=== PATIENT | female | born 1995 | race Caucasian/White ===

== ENCOUNTER 2023-05-23 10:35 | Emergency (ER) | payer BC, SELFPAY ==
[2023-05-23 10:37] VITALS: BP 140/80; PULSE 77; RESP 18; TEMP 36.5; O2SAT 100
[2023-05-23 11:05] LABS: Bilirubin Negative (Negative); Blood Negative (Negative); Clarity Clear (Clear); Glucose Negative (Negative); Ketones Negative (Negative); Leukocyte Esterase Negative (Negative); Nitrite Negative (Negative); Urobilinogen 0.2 mg/dL (Up to 0.2); pH 7.5 (5-8)
[2023-05-23 11:13] LABS: Abs Immature Grans 0.05 10^3/uL (0.0-0.06); Absolute Basophil Count 0.07 10^3/uL (0.0-0.2); Absolute Eosinophil Count 0.19 10^3/uL (0.0-0.7); Absolute Lymphocyte Count 1.98 10^3/uL (1.2-3.4); Absolute Monocyte Count 0.69 10^3/uL (0.1-0.8); Absolute Neutrophil Count 7.68 10^3/uL (1.2-6.7); Basophils % 0.7; Eosinophils % 1.8; HCT 42.3 % (36.0-46.0); HGB 14.6 g/dL (11.2-15.7); Immature Grans % 0.5; Lymphocytes % 18.6; MCH 29.2 pg (27.0-33.0); MCHC 34.5 % (32.0-36.0); MCV 85 fL (80-95); MPV 9.7 fL (8.0-11.0); Monocytes % 6.5; Neutrophils % 71.9; Platelet Count 233 10^3/uL (130-400); RDW 12.4 % (11.7-14.6); RDW-SD 37.6 fL; WBC 10.66 10^3/uL (4.4-10.8)
--- NOTE | 2023-05-23 11:27 | ED.GENADUL_ITS ---
Discharge Plan Disposition Patient Disposition: Home Discharge Details Clinical Impression: Ovarian cyst Primary Care Provider: Tyson Wade III ED Provider: Rodriguez Martins Home Meds and New Rx's Prescriptions: New ibuprofen [IBU] 600 mg tablet 600 mg PO QID PRN (Reason: pain) Qty: 20 0RF ondansetron 4 mg tablet,disintegrating 4 mg PO Q8H PRN (Reason: nausea and vomiting) Qty: 10 0RF Discharge Instructions Instructions: Ovarian Cyst (ED) Additional Instructions: Please continue to take medications as needed. Follow-up with your PRINCIPLE SOFTWARE ENGINEER as needed for reassessment if not improving. Return to the emergency department for any new or significant worsening of symptoms Stand Alone Forms: Work Release Referrals: Tyson Wade III [Primary Care Provider] - (As needed for reassessment or if not improving) Discharge Data Discharge Date/Time-TO BE ENTERED AT DEPARTURE: 05/23/23 14:03 HPI General Mode of arrival: ambulatory . Date/Time Provider Initiated Documentation: 05/23/23 10:40 . Limitations to Documentation: no limitations . Information obtained by: patient and RN notes reviewed . History of Present Illness 27 year old F presents to the emergency department with the chief complaint of abd pain- RLQ, described as moderate, Quality is described as aching, and is localized to the abdomen. Patient reports radiation to back. Patient started experiencing this day(s) (5) and it has been constant. No relieving factors improve symptom(s), No exacerbating factors reported . Patient did receive the following treatments prior to arrival, NSAID Related Data Home Medications Medication Instructions Recorded Confirmed ibuprofen 600 mg tablet (IBU) 600 mg PO QID PRN pain #20 tabs 05/23/23 ondansetron 4 mg disintegrating 4 mg PO Q8H PRN nausea and 05/23/23 tablet vomiting #10 tabs Previous Rx's Medication Instructions Recorded ibuprofen 600 mg tablet (IBU) 600 mg PO QID PRN pain #20 tabs 05/23/23 ondansetron 4 mg disintegrating 4 mg PO Q8H PRN nausea and 05/23/23 tablet vomiting #10 tabs General Stated Complaint: Abd Prob ELIZABET: 3 Review of Systems Constitutional Constitutional: Denies chills, Denies fever(s) and Reports poor appetite Cardiovascular Cardiovascular: Denies chest pain and Denies dyspnea Respiratory Respiratory: Denies cough and Denies dyspnea Gastrointestinal Gastrointestinal: Reports as per HPI, Reports abdominal pain, Denies melena, Denies change in bowel habits, Denies constipation, Denies diarrhea, Reports nausea and Denies vomiting Genitourinary Genitourinary: Denies hematuria, Denies dysuria and Reports flank pain Integumentary/Breasts Skin/Breast: Denies rash Exam Const General: cooperative Orientation: alert, awake and oriented x3 Resp Effort & Inspection: normal respiratory effort and able to speak in complete sentences Auscultation: clear to auscultation bilaterally Cardio Rate: regular rate Rhythm: regular rhythm Heart Sounds: S1 normal and S2 normal GI Inspection: obesity Palpation: soft, no hepatosplenomegaly, not firm, no guarding, no masses, no pulsatile masses, not rigid, no splenomegaly and tender in the RLQ Auscultation: normal bowel sounds Back/Spine/Pelvis Back: no CVA tenderness Neuro General: patient alert, patient awake, patient oriented x3, gait normal and moves all extremities Course Vital Signs Vital signs: Vital Signs Temperature 36.5 C 05/23/23 10:37 Pulse 77 05/23/23 10:37 Respiratory Rate 18 05/23/23 10:37 Blood Pressure 140/80 05/23/23 10:37 Pulse Oximetry 100 05/23/23 10:37 Temperature 36.5 C 05/23/23 10:37 Temperature Source Temporal Artery Scan 05/23/23 10:37 Pulse 77 05/23/23 10:37 Respiratory Rate 18 05/23/23 10:37 Blood Pressure 140/80 05/23/23 10:37 Blood Pressure Position Sitting 05/23/23 10:37 Pulse Oximetry 100 05/23/23 10:37 Oxygen Delivery Method Room Air 05/23/23 10:37 Oxygen Flow Rate 0 05/23/23 10:37 Lab/Test Results Lab/Test Results: Laboratory Tests Range/Units 05/23/23 05/23/23 10:42 11:05 WBC (4.4-10.8) 10^3/uL 10.66 RBC (3.93-5.22) 10^6/uL 5.00 Hgb (11.2-15.7) g/dL 14.6 Hct (36.0-46.0) % 42.3 MCV (80-95) fL 85 MCH (27.0-33.0) pg 29.2 MCHC (32.0-36.0) % 34.5 RDW (11.7-14.6) % 12.4 Plt Count (130-400) 10^3/uL 233 MPV (8.0-11.0) fL 9.7 Immature Gran % 0.5 Neutrophils % 71.9 Lymphocytes % 18.6 Monocytes % 6.5 Eosinophils % 1.8 Basophils % 0.7 Nucleated RBC % (0.0-0.3) % 0.0 Absolute Neutrophils (1.2-6.7) 10^3/uL 7.68 H Absolute Lymphocytes (1.2-3.4) 10^3/uL 1.98 Absolute Monocytes (0.1-0.8) 10^3/uL 0.69 Absolute Eosinophils (0.0-0.7) 10^3/uL 0.19 Absolute Basophils (0.0-0.2) 10^3/uL 0.07 Urine Color (Yellow) Yellow Urine Clarity (Clear) Clear Urine pH (5-8) 7.5 Ur Specific [place] (1.005-1.025) 1.020 Urine Protein (Neg-Trace) mg/dL Negative Urine Ketones (Negative) mg/dL Negative Urine Blood (Negative) Negative Urine Nitrite (Negative) Negative Urine Bilirubin (Negative) Negative Urine Urobilinogen (Up to 0.2) mg/dL 0.2 Ur Leukocyte Esterase (Negative) Negative Urine Glucose (Negative) mg/dL Negative POC- Test(urine) Negative Medical Decision Making Patient presenting to the emergency department for chief complaint of right lower quadrant pain with some radiation to her back for the past 5 days. Patient does state slight low appetite due to intermittent nausea, subjective fever on the first day and none since, denies diarrhea, urinary or vaginal symptoms. Patient does state history of ovarian cyst but states that this feels significantly different than previous ovarian cyst. No other significant contributing past medical history. Physical exam does show significant tenderness to right lower quadrant with palpation, no CVA tenderness, otherwise noncontributory exam. Will plan on performing labs and CT imaging. Reviewed patient's labs and CBC is overall nondiagnostic, CMP urinalysis are also negative and patient is not . CT imaging was performed and does show ovarian cyst that is small. Given that patient is complaining of significant difference from previous feeling and persistence for 5 days will perform ultrasound imaging for evaluation of torsion versus cyst. Ultrasound imaging reviewed and shows ovarian cyst with no evidence of torsion. Discussed management of symptoms with patient along with return and follow-up precautions. After discussion of diagnosis and plan of care patient has no further needs, questions, or concerns and states clear understanding to return to the emergency department for any worsening symptoms. This documentation was generated using [employer] dictation system, please disregard any oddities of phrase or misspellings. Imaging Data Radiologic Study: Imaging: CT Scan Radiologist's impression: Patient Name: Cuca King Unit #: [id number] Loc: ER Ordering Provider: Rodriguez Martins NP Status: PRE ER Primary Care Provider: Tyson Wade III Date of Exam: 05/23/23 Sex: F : 1995 Age: 27 Exam(s) a CT:CT abdomen & pelvis w Exam(s) CT ABDOMEN PELVIS W EXAM: CT ABDOMEN PELVIS W CLINICAL HISTORY: RLQ pain TECHNIQUE: Imaging Protocol: Axial computed tomography images with coronal and sagittal reformatted images were created and reviewed. CONTRAST MATERIAL: Intravenous: Omnipaque 350 Contrast volume:100 mL Oral: No COMPARISON: No exams were available for comparison FINDINGS: ABDOMEN: Lung Bases: Normal where visualized. Liver: Normal density. No measurable mass. Portal, Superior Mesenteric, and Splenic Veins: Unremarkable. Gallbladder and Biliary Tract: No radiodense calculus or dilation. Pancreas: Normal density, no abnormal calcifications or inflammatory process. Spleen: Normal. Adrenals: No masses seen. Kidneys: Normal size, contour and axis. No radiodense stones or obstructive uropathy. No masses seen. Abdominal Aorta: Abdominal portion non-dilated. Bowel: No obstruction or bowel wall thickening. Appendix is unremarkable. Peritoneal Cavity: No ascites, collection or mesenteric inflammatory response. No free air. Lymph Nodes: Within normal limits. Bones: Within normal limits for the patient's age. Soft Tissues: Unremarkable. PELVIS: Bladder: Urinary bladder is incompletely distended but grossly unremarkable. Reproductive Organs: The right ovary is enlarged with a 4.1 x 2.7 cm cyst. Lymph Nodes: Within normal limits. Bones: Within normal limits for the patient's age. IMPRESSION: 1. No evidence of nephrolithiasis or hydronephrosis. 2. No evidence of gallstones or biliary ductal dilatation. 3. Normal appendix. 4. Enlarged right ovary with a 4.1 x 2.7 cm cyst. If there is concern for torsion, pelvic ultrasound should be obtained. Radiologic Study #2: Imaging: Ultrasound Radiologist's impression: Exam(s) US PELVIS TRANSVAGINAL EXAM: US PELVIS TRANSVAGINAL CLINICAL HISTORY: RLQ pain, R Ovarian cyst. TECHNIQUE: Transabdominal and transvaginal pelvic ultrasound was performed using standard protocol. COMPARISON: CT CT ABDOMEN PELVIS W from 05/23/2023 FINDINGS: UTERUS: Position: Anteverted. Size: 7.7 x 4.0 x 4.5 cm Endometrium: 0.6 cm. Normal for patient's menstrual status. Myometrium: Unremarkable. Cervix: Unremarkable. OVARIES: Right: 5.0 x 3.1 x 4.3 cm Cyst or mass: No suspicious cystic or solid masses. There is a 4.1 x 3.3 x 2.5 cm simple cyst on the right ovary. This corresponds to the cysts seen on the CT scan from the same day. Left: 2.0 x 2.6 x 2.5 cm Cyst or mass: No suspicious cystic or solid masses. DOPPLER: Color: Symmetric and uniform flow to both ovaries. CUL-DE-SAC: Free fluid: None. Other: None. IMPRESSION: 1. Normal-appearing uterus with endometrial stripe within normal limits. 2. There is a 4.1 x 3.3 x 2.5 cm simple cyst on the right ovary. This is likely physiologic cyst. No evidence of torsion. Lab Data Lab results reviewed: Yes I reviewed the patient's lab results. Quality:[facility] Related Social Needs: No Data to Display [facility] All Active Problems (Updated 05/23/23 @ 13:52 by Rodriguez Martins NP) Ovarian cyst (Acute) Social History Smoking risk assessment performed?: No
[2023-05-23 11:37] LABS: ALT 23 U/L (14-59); AST 16 U/L (15-37); Albumin 3.6 g/dL (3.4-5.0); Alkaline Phosphatase 94 U/L (46-116); Anion Gap 10.6 mmol/L (3-11); BUN 13 mg/dL (7-18); Bilirubin, Total 0.4 mg/dL (0.2-1.0); CO2 24.4 mmol/L (21.0-32.0); CREATININE 0.7 mg/dL (0.55-1.02); Calcium 8.7 mg/dL (8.5-10.1); Chloride 105 mmol/L (98-107); Estimated GFR 123.01 (mL/min/1.73m2); Glucose 87 mg/dL (74-106); Lipase 22 U/L (16-77); Magnesium 2.2 mg/dL (1.8-2.4); Potassium 4.1 mmol/L (3.5-5.1); Sodium 140 mmol/L (136-145); Total Protein 7.8 g/dL (6.4-8.2)
[2023-05-23] MEDS: Normal Saline - Diluent 50 ML VIAL IJ (11:48)
[2023-05-23] MEDS: Omnipaque 350 MG/ML 100 ML BTL IJ (11:48)
--- NOTE | 2023-05-23 12:00 | DI.US_ITS ---
Exam(s) US PELVIS TRANSVAGINAL EXAM: US PELVIS TRANSVAGINAL CLINICAL HISTORY: RLQ pain, R Ovarian cyst. TECHNIQUE: Transabdominal and transvaginal pelvic ultrasound was performed using standard protocol. COMPARISON: CT CT ABDOMEN PELVIS W from 05/23/2023 FINDINGS: UTERUS: Position: Anteverted. Size: 7.7 x 4.0 x 4.5 cm Endometrium: 0.6 cm. Normal for patient's menstrual status. Myometrium: Unremarkable. Cervix: Unremarkable. OVARIES: Right: 5.0 x 3.1 x 4.3 cm Cyst or mass: No suspicious cystic or solid masses. There is a 4.1 x 3.3 x 2.5 cm simple cyst on the right ovary. This corresponds to the cysts seen on the CT scan from the same day. Left: 2.0 x 2.6 x 2.5 cm Cyst or mass: No suspicious cystic or solid masses. DOPPLER: Color: Symmetric and uniform flow to both ovaries. CUL-DE-SAC: Free fluid: None. Other: None. IMPRESSION: 1. Normal-appearing uterus with endometrial stripe within normal limits. 2. There is a 4.1 x 3.3 x 2.5 cm simple cyst on the right ovary. This is likely physiologic cyst. N o evidence of torsion. DATA REPOSITORY:
--- NOTE | 2023-05-23 12:00 | DI.CT_ITS ---
Exam(s) CT ABDOMEN PELVIS W EXAM: CT ABDOMEN PELVIS W CLINICAL HISTORY: RLQ pain TECHNIQUE: Imaging Protocol: Axial computed tomography images with coronal and sagittal reformatted images were created and reviewed. CONTRAST MATERIAL: Intravenous: Omnipaque 350 Contrast volume:100 mL Oral: No COMPARISON: No exams were available for comparison FINDINGS: ABDOMEN: Lung Bases: Normal where visualized. Liver: Normal density. No measurable mass. Portal, Superior Mesenteric, and Splenic Veins: Unremarkable. Gallbladder and Biliary Tract: No radiodense calculus or dilation. Pancreas: Normal density, no abnormal calcifications or inflammatory process. Spleen: Normal. Adrenals: No masses seen. Kidneys: Normal size, contour and axis. No radiodense stones or obstructive uropathy. No masses seen. Abdominal Aorta: Abdominal portion non-dilated. Bowel: No obstruction or bowel wall thickening. Appendix is unremarkable. Peritoneal Cavity: No ascites, collection or mesenteric inflammatory response. No free air. Lymph Nodes: Within normal limits. Bones: Within normal limits for the patient's age. Soft Tissues: Unremarkable. PELVIS: Bladder: Urinary bladder is incompletely distended but grossly unremarkable. Reproductive Organs: The right ovary is enlarged with a 4.1 x 2.7 cm cyst. Lymph Nodes: Within normal limits. Bones: Within normal limits for the patient's age. IMPRESSION: 1. No evidence of nephrolithiasis or hydronephrosis. 2. No evidence of gallstones or biliary ductal dilatation. 3. Normal appendix. 4. Enlarged right ovary with a 4.1 x 2.7 cm cyst. If there is concern for torsion, pelvic ultrasound should be obtained. RADIATION DOSE DELIVERED: Total DLP DATA REPOSITORY: All CT scans at this facility are submitted to the National Radiology Data Registry (NRDR) Dose Index Registry (DIR) with the [employer] (ACR). RADIATION OPTIMIZATION: All CT scans at this facility use at least one of these dose optimization te chniques: automated exposure control; mA and/or kV adjustment per patient size (includes targeted exa ms where dose is matched to clinical indication); or iterative reconstruction.
[2023-05-23] MEDS: Ondansetron O.D.T. 4 MG TABEF PO (12:28)
== END 2023-05-23 14:03 | disposition home or self-care (01) ==
PROVIDERS: Emergency Provider Nurse Practitioner Family; PCP Pediatrics
DX: N83.291 Other ovarian cyst, right side
CPT/HCPCS: 80053; 81025; 83690; 99285; 74177; 76830; 76856; 81003; 83735; 85025; J3490

== ENCOUNTER 2023-10-19 11:35 | Outpatient (CLI) | payer BC, SELFPAY ==
--- NOTE | 2023-10-19 08:30 | DI.RAD_ITS ---
Exam(s) XR HIP LT COMPLETE AP PELVIS EXAM: XR HIP LT COMPLETE AP PELVIS CLINICAL HISTORY: LEFT HIP PAIN. TECHNIQUE: 2D digital imaging was performed. COMPARISON: No exams were available for comparison FINDINGS: Two views. No evidence of pelvic nor hip fracture. Additional lateral view of the left hip does not reveal join t space narrowing nor osteophytes. Bone density normal. Sacroiliac joints appear unremarkable. Bone density normal. No osseous lesions. No evidence of kristie scular necrosis. IMPRESSION: No acute osseous findings in the pelvis and hips. DATA REPOSITORY: RADIATION DOSE DELIVERED:
== END 2023-10-19 11:36 | disposition home or self-care (01) ==
LOC: DIORS 11:36
PROVIDERS: PCP Internal Medicine; Referring Provider Internal Medicine; Visit Provider Student in an Organized Health Care Education/Training Program
DX: M25.552 Pain in left hip (principal)
CPT/HCPCS: 73502

== ENCOUNTER 2023-11-16 21:13 | Outpatient (CLI) | payer BC, SELFPAY ==
[2023-11-16] MEDS: Normal Saline - Diluent 50 ML VIAL IJ (10:08)
[2023-11-16] MEDS: Bupivacaine 0.5% Pres-Free 10 ML VIAL IJ (10:12)
[2023-11-16] MEDS: Omnipaque 300 MG/ML 10 ML BTL IJ (10:13)
[2023-11-16] MEDS: Gadoterate meglumine 20 ML VIAL IVP (10:14)
== END 2023-11-16 21:33 ==
LOC: DI 11-23 21:13
PROVIDERS: PCP Internal Medicine; Visit Provider Student in an Organized Health Care Education/Training Program
DX: M25.852 Other specified joint disorders, left hip (principal); S73.192A Other sprain of left hip, initial encounter; Z53.09 Procedure and treatment not carried out because of other contraindication
CPT/HCPCS: J0665

== ENCOUNTER 2023-12-23 00:37 | Outpatient (CLI) | payer BC, SELFPAY ==
--- OUTSIDE RECORDS SUMMARY | 2023-12-23 00:41 | XMS_ITS | Clinical Summary ---
Author Organization [facility] Address [address] [place] [address] Care Team Providers Care Router Machine Operator Name Role Phone Unknown, Provider Primary Care Provider Encounters Date Type Department Care Team Description 10/27/2023 Lab Requisition [facility] Pathology & Laboratory Medicine - [facility] [address] [place] [address] Virgilio Kumar DO Encounter for other general examination from Last 3 Months Social History Tobacco Use Types Packs/Day Years Used Date Smoking Tobacco: Never Assessed Interpersonal Safety Answer Date Record ed Physically Hurt Never 2019 Verbally Threaten Not on file 2019 Sex and Gender Information Value Date Recorded Sex Assigned at Not on file Gender Identity Not on file Sexual Orientation Not on file Plan of Treatment Health Maintenance Due Date Last Done Comments Hepatitis C Screen 1995 Hepatitis B Vaccine (1 of 3 - 19+ 3-dose series) 10/15 COVID-19 Vaccine ( season) 2023 Procedures Procedure Name Priority Date/Time Associated Diagnosis Comments SURGICAL PATHOLOGY Today 10/27/2023 8: 11 EDT Encounter for other general examination from Last 3 Months Results * SURGICAL PATHOLOGY (10/27/2023 8:11 EDT) Note to Patient The following pathology results have been interpreted by your pathologist and may be available to you before your health provider has had the opportunity to review them. Please allow time for your provider to receive these results and explore management options, if applicable. 11/01/2023 10:05 EDT [facility] Final Diagnosis A. ESOPHAGUS, MID, BIOPSY: - Superficial strip of squamous mucosa with reactive changes. 11/01/2023 10:05 EDT [facility] Attestation There was significant resident/fellow involvement in the diagnostic evaluation of this case. By the signature below, the attending physician certifies that they have personally conducted a gross and/or microscopic examination of the described specimens and rendered or confirmed the above diagnosis. 11/01/2023 10:05 [facility] at 1005 Clinical History Dysphagia; normal 11/01/2023 10:05 [facility] Gross Description A. Received in formalin labelled with proper patient identification (initials D, M) and mid esophagus bx are 2 white tissues (0.2 x 0.2 x 0.1 cm and 0.5 x 0.2 x 0.1 cm). Entirely submitted in A1. INGA DURBIN([facility]) 10/28/2023 9:21 11/01/2023 10:05 [facility] Resident/Adrian w: Rodriguez [place] DO 11/01/2023 10:05 [facility] Performing Lab [facility] 11/01/2023 10:05 [facility] Scanned Images 11/01/2023 10:05 [facility] Tissue ESOPHAGEAL STRUCTURE / Unknown 10/27/2023 8:11 EDT 10/28/2023 9:07 EDT Virgilio Kumar DO PATHOLOGY ORDERABL ES [facility] [address] [place] [address] from Last 3 Months Care Teams Router Machine Operator Relationship Specialty Start Date End Date Unknown, Provider, PCP - General 04/06/18
--- OUTSIDE RECORDS SUMMARY | 2023-12-23 00:42 | XMS_ITS | Encounter Summary ---
Author Organization [facility] Address [address] [place] [address] Care Team Providers Care Supervisor Assembly Room Name Role Phone Unknown, Provider Primary Care Provider [phone] Encounter Details Date Type Department Care Team (Late st Contact Info) Description 07/13/2022 Lab Requisition [facility] Pathology & Laboratory Medicine - [facility] [address], [place] [address] Madina Kulkarni [address] [place] [address] Encounter for screening for malignant neoplasm of cervix; Encounter for screening for human papillomavirus (HPV) Social History Tobacco Use Types Packs/Day Years Used Date Smoking Tobacco: Never Assessed Interpersonal Safety Answer Date Record ed Physically Hurt Never 2019 Verbally Threaten Not on file 2019 Sex and Gender Information Value Date Recorded Sex Assigned at Not on file Gender Identity Not on file Sexual Orientation Not on file documented as of this encounter Plan of Treatment Not on file documented as of this encounter Procedures Procedure Name Priority Date/Time Associated Diagnosis Comments PAP TEST Today 07/13/2022 9:13 EDT documented in this encounter Results * PAP TEST (07/13/2022 9:13 EDT) Specimens A. Cervix and/or Endocervix , ThinPrep Imaging System with Manual Evaluation 07/20/2022 12:50 EDT [facility] Specimen Adequacy Satisfactory for Evaluation - transformation zone component present 07/20/2022 12:50 EDT [facility] General Categorization Negative for intraepithelial lesion or malignancy 07/20/2022 12:50 EDT [facility] Attestation . 07/20/2022 12:50 EDT [facility] at 1250 Clinical History SEE BELOW 07/21/19 12:50 EDT [facility] Performing Lab [facility] 07/20/2022 12:50 EDT [facility] Scanned Images 07/20/2022 12:50 EDT [facility] Papanicolaou smear specimen (specimen) CERVIX UTERI STRUCTURE / Unknown 07/13/2022 9:13 EDT 07/14/2022 15:51 EDT Madina Kulkarni PATHOLOGY ORDERABLES [facility] [address] [place] [address] documented in this encounter Visit Diagnoses Diagnosis Encounter for screening for malignant neoplasm of cervix Screening for malignant neoplasm of the cervix Encounter for screening for human papillomavirus (HPV) Special screening examination for human papillomavirus (HPV) documented in this encounter Care Teams Supervisor Assembly Room Relationship Specialty Start Date End Date Unknown, Provider, PCP - General 04/06/18 documented as of this encounter
--- OUTSIDE RECORDS SUMMARY | 2023-12-23 00:42 | XMS_ITS | Encounter Summary ---
Author Organization [facility] Address [address] [place] [address] Care Team Providers Care Residential Child Care Counselor Name Role Phone Unknown, Provider Primary Care Provider Encounter Details Date Type Department Care Team (Latest Contact Info) Description 04/06/2018 19:49 EST - 04/06/2018 23:59 EST Hospital Encounter [address] [address] Unknown, Provider, Discharge Disposition: Auto Discharge Social History Tobacco Use Types Packs/Day Years Used Date Smoking Tobacco: Never Assessed Sex and Gender Information Value Date Recorded Sex Assigned at Not on file Gender Identity Not on file Sexual Orientation Not on file documented as of this encounter Discharge Disposition Disposition Code Departure Means Destination Auto Discharge Home documented in this encounter Plan of Treatment Not on file documented as of this encounter Visit Diagnoses Not on filedocumented in this encounter Care Teams Residential Child Care Counselor Relationship Specialty Start Date End Date Unknown, Provider, PCP - General 04/06/18 documented as of this encounter
--- OUTSIDE RECORDS SUMMARY | 2023-12-23 00:42 | XMS_ITS | Encounter Summary ---
Author Organization [facility] Address [address] [place] [address] Care Team Providers Care Adult Probation Officer Name Role Phone Unknown, Provider Primary Care Provider Encounter Details Date Type Department Care Team (Late st Contact Info) Description 07/13/2022 Lab Requisition [facility] Pathology & Laboratory Medicine - [facility] [address] [place] [address] Outr Resulting Lab, Provider Social History Tobacco Use Types Packs/Day Years [...] Procedure Name Priority Date/Time Associated Diagnosis Comments CHLAMYDIA/N. GONORRHOEAE AMPLIFIED NUCLEIC ACID, THINPREP Routine 07/13/2022 9:13 EDT documented in this encounter Results * CHLAMYDIA/N. GONORRHOEAE AMPLIFIED RNA, THINPREP (07/13/2022 9:13 EDT) Neisseria gonorrhoeae Result Negative Negative 07/14/2022 15:35 EDT [facility] Chlamydia trachomatis Result Negative Negative 07/14/2022 15:35 EDT [facility] Papanicolaou smear specimen (specimen) CERVIX UTERI STRUCTURE / Unknown 07/13/2022 9:13 EDT 07/14/2022 10:44 EDT Provider Outr Resulting Lab MICROBIOLOGY - GENERAL ORDERABLES [facility] [address] [place] [address] documented in this encounter Visit Diagnoses Not on filedocumented in this encounter Care Teams Adult Probation Officer Relationship Specialty Start Date End Date Unknown, Provider, PCP - General 04/06/18 documented as of this encounter
--- OUTSIDE RECORDS SUMMARY | 2023-12-23 00:42 | XMS_ITS | Referral Summary ---
Author Organization [facility] Address [address] [place] [address] Care Team Providers Care Chargemaster Specialist Name Role Phone Unknown, Provider Primary Care Provider Encounters Date Type Department Care Team Description 10/27/2023 Lab Requisition [facility] Pathology & Laboratory Medicine - [facility] [address] [place] [address] Virgilio Kumar DO Encounter for other general [...] Orientation Not on file Plan of Treatment Not on file Procedures Procedure Name Priority Date/Time Associated Diagnosis [...] management options, if applicable. 11/01/2023 10:05 EDT [facility] Final Diagnosis A. ESOPHAGUS, MID, BIOPSY: - Superficial strip of squamous mucosa with reactive changes. 11/01/2023 10:05 EDT [facility] Attestation There was significant resident/fellow involvement in the diagnostic evaluation of this case. By the signature below, the attending physician certifies that they have personally conducted a gross and/or microscopic examination of the described specimens and rendered or confirmed the above diagnosis. 11/01/2023 10:05 EDT [facility] at 1005 Clinical History Dysphagia; normal 11/01/2023 10:05 EDT [facility] Gross Description A. Received in formalin labelled with proper patient identification (initials D, M) and mid esophagus bx are 2 white tissues (0.2 x 0.2 x 0.1 cm and 0.5 x 0.2 x 0.1 cm). Entirely submitted in A1. INGA DURBIN(ASCP) 10/28/2023 9:21 11/01/2023 10:05 EDT [facility] Resident/Adrian w: Rodriguez Canada DO 11/01/2023 10:05 EDT [facility] Performing Lab [facility] 11/01/2023 10:05 EDT [facility] Scanned Images 11/01/2023 10:05 T [facility] Tissue ESOPHAGEAL STRUCTURE / Unknown 10/27/2023 8:11 EDT 10/28/2023 9:07 EDT Virgilio Kumar DO PATHOLOGY ORDERABL ES [facility] [address] [place], [place] [id number] from Last 3 Months Care Teams Chargemaster Specialist Relationship Specialty Start Date End Date Unknown, Provider, PCP - General 04/06/18
--- OUTSIDE RECORDS SUMMARY | 2023-12-23 00:42 | XMS_ITS | Encounter Summary ---
Author Organization [facility] Address [address] [place] [address] Care Team Providers Care M48/M60 Tank Driver Name Role Phone Unknown, Provider Primary Care Provider Encounter Details Date Type Department Care Team (Late st Contact Info) Description 10/27/2023 Lab Requisition [facility] Pathology & Laboratory Medicine - [facility] [address] [place], [place] [id number] Virgilio Kumar, [place] [phone] Encounter for other general examination Social History Tobacco Use Types Packs/Day Years [...] 11 EDT Encounter for other general examination documented in this encounter Results * SURGICAL PATHOLOGY (10/27/2023 8:11 EDT) Note to Patient The following pathology results have been interpreted by your pathologist and may be available to you before your health provider has had the opportunity to review them. Please allow time for your provider to receive these results and explore management options, if applicable. 11/01/2023 10:05 EDT [facility] Final Diagnosis A. ESOPHAGUS, MID, BIOPSY: - Superficial strip of squamous mucosa with reactive changes. 11/01/2023 10:05 EDT [facility] Attestation There was significant resident/fellow involvement in the diagnostic evaluation of this case. By the signature below, the attending physician certifies that they have personally conducted a gross and/or microscopic examination of the described specimens and rendered or confirmed the above diagnosis. 11/01/2023 10:05 [facility] at 1005 Clinical History Dysphagia; normal 11/01/2023 10:05 [facility] Gross Description A. Received in formalin labelled with proper patient identification (initials D, M) and mid esophagus bx are 2 white tissues (0.2 x 0.2 x 0.1 cm and 0.5 x 0.2 x 0.1 cm). Entirely submitted in A1. INGA DURBIN(ASCP) 10/28/2023 9:21 11/01/2023 10:05 [facility] Resident/Adrian w: Rodriguez Canada DO 11/01/2023 10:05 [facility] Performing Lab [facility] 11/01/2023 10:05 [facility] Scanned Images 11/01/2023 10:05 [facility] Tissue ESOPHAGEAL STRUCTURE / Unknown 10/27/2023 8:11 EDT 10/28/2023 9:07 EDT Virgilio Kumar DO PATHOLOGY ORDERABL ES [facility] [address] [place], [place] [address] documented in this encounter Visit Diagnoses Diagnosis Encounter for other general examination documented in this encounter Care Teams M48/M60 Tank Driver Relationship Specialty Start Date End Date Unknown, Provider, PCP - General 04/06/18 documented as of this encounter
--- OUTSIDE RECORDS SUMMARY | 2023-12-23 00:42 | XMS_ITS | Encounter Summary ---
Author Organization [facility] Address [address] [place] [address] Care Team Providers Care Incubator Tender Name Role Phone Unknown, Provider Primary Care Provider Encounter Details Date Type Department Care Team (Late st Contact Info) Description 04/06/2018 Results Only [facility] Urology - [facility] [address] [place], [place] [phone] Jhon Ignacio MD [address] [facility], [address] [place] [phone] Social History Tobacco Use Types Packs/Day Years Used Date Smoking Tobacco: Never Assessed Sex and Gender Information Value Date Recorded Sex Assigned at Not on file Gender Identity Not on file Sexual Orientation Not on file documented as of this encounter Plan of Treatment Not on file documented as of this encounter Procedures Procedure Name Priority Date/Time Associated Diagnosis Comments CYTOPATHOLOGY Routine 04/06/2018 0:00 EST documented in this encounter Results * CYTOPATHOLOGY (04/06/2018 0:00 EST) Pathology Report: CYTOPATHOLOGY REPORT Reports generated via electronic interface contain original data; however they are lacking the format of the original report. Caution should be taken when reading/interpret ing unformatted reports. Name: ? FERNANDO CUCA ? Accession #: ? [id number] : ? 1995 (Age: 22) ??F ?Collect Date: ? 04/06/2018 Location: ? [facility] ? Receive Date: ? 04/07/2018 Provider: ? JHON IGNACIO MD Copy to: ? CYTOLOGIC DIAGNOSIS: URINE, NOT OTHERWISE SPECIFIED, CYTOLOGIC EVALUATION: - Negative for malignant cells. Document reviewed and electronically signed by: ? RAZ LEAVITT MD Report Date: ??04/07/2018 12:30 By the signature above, the attending physician certifies that he/she has personally conducted a gross and/or microscopic examination of the described specimens and rendered or confirmed the above diagnosis. Specimen Type: ? 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 ? Gross Description: ? 50ccs of opaque yellow fluid were received and processed by selective cellular enhancement technique. ? End of Report [facility] 04/06/2018 04/07/2018 7:1 1 EST Jhon Ignacio MD PATHOLOGY ORDERABLES [facility] [address] [place] [address] documented in this encounter Visit Diagnoses Not on filedocumented in this encounter Care Teams Incubator Tender Relationship Specialty Start Date End Date Unknown, Provider, PCP - General 04/06/18 documented as of this encounter
--- OUTSIDE RECORDS SUMMARY | 2023-12-23 00:42 | XMS_ITS | Encounter Summary ---
Author Organization [facility] Address [address] [place] [id number] Care Team Providers Care Data Mining Analyst Name Role Phone Unknown, Provider Primary Care Provider Encounter Details Date Type Department Care Team (Late st Contact Info) Description 10/29/2019 Lab Requisition [facility] Pathology & Laboratory Medicine - [facility] [address] [place] [address] Outr Resulting Lab, Provider Social History Tobacco [...] CHLAMYDIA/N. GONORRHOEAE AMPLIFIED NUCLEIC ACID, THINPREP Routine 10/29/2019 14:53 EDT documented in this encounter Results * CHLAMYDIA/N. GONORRHOEAE AMPLIFIED RNA, THINPREP (10/29/2019 14:53 EDT) Neisseria gonorrhoeae Result Negative Negative 10/30/2019 14:10 EDT [facility] Chlamydia trachomatis Result Negative Negative 10/30/2019 14:10 EDT [facility] Papanicolaou smear specimen (specimen) CERVIX UTERI STRUCTURE / Unknown 10/29/2019 14:53 EDT 10/30/2019 8:25 EDT Provider Outr Resulting Lab MICROBIOLOGY - GENERAL ORDERABLES [facility] [address] [place] [address] documented in this encounter Visit Diagnoses Not on filedocumented in this encounter Care Teams Data Mining Analyst Relationship Specialty Start Date End Date Unknown, Provider, PCP - General 04/06/18 documented as of this encounter
--- OUTSIDE RECORDS SUMMARY | 2023-12-23 00:42 | XMS_ITS | Encounter Summary ---
Author Organization [facility] Address [address] [place] [address] Care Team Providers Care Inside Sales Lead Name Role Phone Unknown, Provider Primary Care Provider Encounter Details Date Type Department Care Team (Late st Contact Info) Description 10/29/2019 Lab Requisition [facility] Pathology & Laboratory Medicine - [facility] [address] [place], [place] [phone] Cailin Rock PA [address] [place] [address] [place] [phone] Encounter for other general examination Social History [...] Date/Time Associated Diagnosis Comments PAP TEST Today 10/29/2019 14:53 EDT documented in this encounter Results * PAP TEST (10/29/2019 14:53 EDT) Specimens A. Cervix and/or Endocervix , ThinPrep Imaging System with Manual Evaluation 11/08/2019 9:54 EDT [facility] Specimen Adequacy Satisfactory for Evaluation - transformation zone component present 11/08/2019 9:54 EDT [facility] General Categorization Negative for intraepithelial lesion or malignancy 11/08/2019 9:54 EDT [facility] Attestation . 11/08/2019 9:54 EDT [facility] at 0954 Scanned Images 11/08/2019 9:54 EDT [facility] Papanicolaou smear specimen (specimen) CERVIX UTERI STRUCTURE / Unknown 10/29/2019 14:53 EDT 10/30/2019 9:57 EDT Cailin XIONG PATHOLOGY ORDERA SATNAM [facility] [address] [place] [address] documented in this encounter Visit Diagnoses Diagnosis Encounter for other general examination documented in this encounter Care Teams Inside Sales Lead Relationship Specialty Start Date End Date Unknown, Provider, PCP - General 04/06/18 documented as of this encounter
--- NOTE | 2023-12-23 07:15 | DI.MRI_ITS ---
Exam(s) MR LOWER JOINT LT W EXAM: MR LOWER JOINT LT W CLINICAL HISTORY: L HIP PAIN,labreal tear lt hip,s73.192a,hip dysplasia,lt hip pain,m25.851 TECHNIQUE: Multiplanar multisequence MRI of the hip was performed following left hip arthrogram. COMPARISON: Plain films 10/19/2023 reviewed FINDINGS: MARROW:There is no evidence of fracture, bone contusion, nor avascular necrosis. There are no signif icant osseous lesions.There is no significant osseous excrescence at the femoral head-neck junction t o suggest the presence of cam-type ABEBA. BURSAE: There is no evidence of trochanteric bursitis. There is no evidence of iliopsoas bursitis. HIP JOINT SPACE: No obvious chondral defects.There is no hypertrophy of the ligamentum teres nor sign al abnormality at the fovea centralis.There is a small area of subarticular bone edema in the anterio r superior acetabulum. LABRUM: There is a thin linear cleft of contrast invagination on the undersurface of the superior mago tabular labrum suspicious for small tear TENDONS: No evidence of tendinitis nor tendon tears. ISCHIAL TUBEROSITY/HAMSTRING: There is no abnormal intraosseous signal in the ipsilateral ischial tub erosity nor tear of the common hamstrings tendon attachment site at this level. IMPRESSION: 1. Findings are suspicious for small tear in the superior labrum. 2. Small focus of subarticular bone edema in the superior acetabulum 3. No chondral defects in the joint. No loose intra-articular bodies. No stress fractures. No evid ence of avascular necrosis. DATA REPOSITORY:
[2023-12-23] MEDS: Lidocaine 1% Multi-Dose 50 ML VIAL 25 ML IJ (11:20)
[2023-12-23] MEDS: Normal Saline - Diluent 50 ML VIAL 20 ML IJ (11:21)
[2023-12-23] MEDS: Omnipaque 300 MG/ML 10 ML BTL 3 ML IJ (11:23)
[2023-12-23] MEDS: Gadoterate meglumine 20 ML VIAL IVP (11:23)
--- NOTE | 2023-12-23 11:25 | DI.RAD_ITS ---
Exam(s) RF HIP ARTHRO RAD W CT OR MRI EXAM: RF HIP ARTHRO RAD W CT OR MRI CLINICAL HISTORY: labral tear lt hip joint,s73.192a. TECHNIQUE: 2D and realtime digital imaging was performed. CONTRAST MATERIAL: Intra-articular preservative-free saline/Omnipaque 300/Dotarem 0.1 cc COMPARISON: MR MR LOWER JOINT LT W from 12/23/2023 FINDINGS: Pre MRI arthrogram was performed at the request of the referring orthopedic surgeon. Patient was consented by myself prior to this procedure. Patient was placed in supine position on the fluoroscopy table. Using sterile technique and adequate skin-subcutaneous anesthesia, fluoroscopic guidance was used to advance a 22 gauge spinal needle into the hip joint. A sterile solution of preservative-free saline, Omnipaque 300 (less than usual because of patient his tory), and 0.1 cc Dotarem was injected into the joint space. Needle was removed. Patient tolerated this procedure well and there were no intraprocedural complications. She was transported to the MRI suite. IMPRESSION: Successful pre MRI left hip arthrogram RADIATION DOSE DELIVERED: gonzalo Murray=17.8mGy
--- NOTE | 2023-12-23 13:09 | DI.VRAD_ITS ---
PROCEDURE INFORMATION: Exam: MR Left Lower Extremity Joint With Contrast; Hip Exam date and time: 12/23/2023 11:35 AM Age: 28 years old Clinical indication: Pain; Hip; Left TECHNIQUE: Imaging protocol: Magnetic resonance imaging of the left lower extremity joint with contrast. Exam focused on the hip. Contrast material: DOTAREM/OMNIPAQUE; Contrast volume: 5 ml; Contrast route: INTRA-ARTICULAR (ARTHROGRAM); COMPARISON: CR XR HIP LT COMPLETE AP PELVIS 10/19/2023 9:01 AM FINDINGS: Bones/joints: Minimal reactive marrow edema in anterior superior acetabulum. Labrum: Small linear cleft of gadolinium contrast undersurface of superior acetabular labrum suspicious for labral tear. TENDONS: Tendons of iliopsoas group: Unremarkable. No evidence of tear. Tendons of medial compartment of thigh: Unremarkable. No evidence of tear. Tendons of lateral rotators of hip: Unremarkable. No evidence of tear. Tendons of gluteal group: Unremarkable. No evidence of tear. Soft tissues: Unremarkable. Intraperitoneal space: Small amount of free fluid in the pelvis. Reproductive: Multiple follicles in both ovaries IMPRESSION: 1. Slight undersurface tear of the superior acetabular labrum 2. Multiple follicles in both ovaries this can be seen in polycystic ovarian syndrome but should be correlated clinically severe. Dictated and Authenticated by: Adeola Norton MD. Ordering:FLAVIA Barbosa MD
== END 2023-12-23 00:57 ==
LOC: DI 00:37
PROVIDERS: PCP Internal Medicine; Visit Provider Student in an Organized Health Care Education/Training Program
DX: S73.192D Other sprain of left hip, subsequent encounter; X58.XXXD Exposure to other specified factors, subsequent encounter
CPT/HCPCS: 27093; 73525; 73722; J2003

== ENCOUNTER 2024-01-04 01:52 | Outpatient (CLI) | payer OTHER, BC, SELFPAY ==
[2024-01-04] MEDS: methylPREDNISolone ACETATE 40 MG/ML VIAL IM (11:20)
[2024-01-04] MEDS: Omnipaque 300 MG/ML 10 ML BTL 8 ML IJ (11:23)
[2024-01-04] MEDS: Normal Saline - Diluent 50 ML VIAL IJ (11:23)
[2024-01-04] MEDS: Lidocaine 1% Pres-Free 30 ML VIAL 15 ML IJ (11:27)
--- NOTE | 2024-01-04 11:29 | DI.RAD_ITS ---
Exam(s) RF JOINT INJ. FLUORO GUID RAD EXAM: RF JOINT INJ. FLUORO GUID RAD CLINICAL HISTORY: L HIP PAIN,fluoro guided injection, labral tear lt hip,s73.192a. TECHNIQUE: 2D and realtime digital imaging was performed. CONTRAST MATERIAL: Oral barium Oral water soluble contrast was administered. COMPARISON: No exams were available for comparison FINDINGS: This intra-articular steroid injection of the left hip was performed at the request of the referring orthopedic surgeon. Patient was placed in supine position on the fluoroscopy table. Using sterile technique and adequate skin-subcutaneous anesthesia, fluoroscopic guidance was used to advance a 22 gauge spinal needle into the left hip joint using an anterolateral approach. Intra-carlton cular position was confirmed with 2 cc of Omnipaque 300. Thereafter a sterile solution of 40 mg Depo-Medrol and 5 cc bupivacaine was injected into the joint s pace. Needle was then removed. The patient tolerated this procedure well and there were no intraprocedural complications. IMPRESSION: Successful left hip steroid injection procedure RADIATION DOSE DELIVERED: gonzalo Murray=16.1mGy
== END 2024-01-04 02:12 ==
PROVIDERS: PCP Internal Medicine; Visit Provider Student in an Organized Health Care Education/Training Program
DX: S73.192A Other sprain of left hip, initial encounter (principal); M25.552 Pain in left hip; X58.XXXA Exposure to other specified factors, initial encounter
CPT/HCPCS: 20610; 77002; J1010